=== PATIENT | male | born 1960 | race Caucasian/White ===

== ENCOUNTER 2018-01-17 15:43 | Observation (INO) | payer OTHER ==
--- NOTE | 2018-01-17 16:09 | RAD ---
TWO VIEWS OF THE CHEST: Comparison: None. History: Chest tightness. FINDINGS: Two views of the chest show normal sized cardiomediastinal silhouette. There is no evidence of consol idation, mass, or pleural effusion. The bones are unremarkable. IMPRESSION: No evidence of acute cardiopulmonary disease. POS: [facility]
[2018-01-17 16:29] LABS: #Basophils 0.1 thou/uL (0.0-0.2); #Eosinphils 0.2 thou/uL (0.0-0.7); #Lymphocytes 2.4 thou/uL (1.20-3.40); #Neutrophils 4.9 thou/uL (1.40-6.50); %Basophils 0.9 % (0.0-1.0); %Eosinophils 2.3 % (0.0-10.0); %Lymphocytes 27.7 % (21.0-51.0); %Monocytes 12.1 % (0.0-10.0); Hemoglobin 17.6 g/dL (14.0-18.0); Mean Corpuscular HGB CONC 35.7 g/dL (32.0-36.0); Mean Corpuscular Hemoglobin 31.9 pg (27.0-31.0); Mean Corpuscular Volume 89.6 fL (78.0-98.0); Mean Platelet Volume 6.1 fL (7.4-10.4); Platelet Count 254 thou/uL (130-400); RBC Distribution Width 12.7 % (11.5-14.5); White Blood Cell (WBC) Count 8.7 thou/uL (4.8-10.8)
[2018-01-17 16:53] LABS: ALT (SGPT) 51 U/L (8-55); AST (SGOT) 29 U/L (5-34); Albumin 4.2 g/dL (3.5-5.0); Alkaline Phosphatase 78 U/L (40-150); Anion Gap 12 mmol/L (10-20); BUN (Urea Nitrogen) 19 mg/dL (8.4-25.7); CK (CPK) 138 U/L (30-200); Calc. Creatinine Clearance 0 mL/min (70-130); Calcium 9.4 mg/dL (7.8-10.44); Carbon Dioxide 23 mmol/L (22-29); Chloride 110 mmol/L (98-107); Estimated GFR-MDRD 41; Globulin 3.2 g/dL (2.4-3.5); Glucose 104 mg/dL (70-105); Lipase 25 U/L (8-78); Potassium 4.1 mmol/L (3.5-5.1); Protein, Total 7.4 g/dL (6.0-8.3); Sodium 141 mmol/L (136-145)
[2018-01-17 16:54] LABS: PTT 28.7 SEC (22.9-36.1); Prothrombin Time 12.9 SEC (12.0-14.7)
[2018-01-17 16:56] LABS: CKMB 2.9 ng/mL (0-6.6); Troponin I Less than 0.010 ng/mL (< 0.028)
[2018-01-17 19:28] LABS: Troponin I Less than 0.010 ng/mL (< 0.028)
[2018-01-17 22:16] VITALS: BMI 38.5
[2018-01-17 22:58] LABS: Troponin I Less than 0.010 ng/mL (< 0.028)
[2018-01-18 07:55] VITALS: BP 164/98; TEMP 97.8
[2018-01-18] MEDS ORDERED: Metoprolol Tartrate 25 MG TAB PO SCH (11:00)
--- NOTE | 2018-01-18 11:07 | SS ---
DATE OF ADMISSION: 01/17/2018 DATE OF DISCHARGE: 01/18/2018 PRIMARY CARE PHYSICIAN: Dr. Vladislav Justice. ADMISSION DIAGNOSES: Hypertensive urgency and chest discomfort. DISCHARGE DIAGNOSES: Hypertension, hemochromatosis with liver cirrhosis, noncompliance. CONSULTATIONS: None. PROCEDURES: Rule out TN protocol, telemetry monitoring. PAST MEDICAL HISTORY: Hypertension and hereditary hemochromatosis with cirrhosis. MEDICATIONS: Metoprolol 25 mg daily, but noncompliant. PAST SURGICAL HISTORY: Appendectomy, cardiac catheterization in 2014. A stress test and echocardiog елена in 05/2017. SOCIAL HISTORY: No smoking and no alcohol. 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 FAMILY HISTORY: Positive for heart disease. REVIEW OF SYSTEMS: As per the history of present illness. He denies any recent fevers, chills, or r ecent illness. HEENT: No headache, visual or hearing changes. Cardiac: Some chest discomfort yest erday when his blood pressure was high. Denies chest pain, palpitations, shortness of breath. Pulmo nary: Denies cough or hemoptysis. Gastrointestinal: Positive history of hemochromatosis. He was l ast seen by GI in [place] in 08/2017. He was not compliant with followup recommendations. He has not continued with scheduled phlebotomy. Genitourinary: Denies dysuria or hematuria. Neurologic: No weakness, seizures, or syncope. PHYSICAL EXAMINATION: VITAL SIGNS: Temperature 97.8, pulse of 84, respirations 20, blood pressure 148/93, pulse ox is 97% on room air. GENERAL: He is awake and alert, in no acute distress, resting comfortably in bed, morbidly obese. NECK: Supple. HEART: Regular rate and rhythm without murmurs. LUNGS: Clear bilaterally. ABDOMEN: Obese, soft, nontender, nondistended. No hepatosplenomegaly. EXTREMITIES: Trace edema bilaterally in lower extremities. NEUROLOGIC: Cranial nerves II-XII are grossly intact. LABORATORY DATA: Cardiac enzymes negative x3. Sodium 141, potassium 4.1, chloride 110, CO2 of 23, B UN and creatinine 19 and 1.74 with a GFR of 41. Serum glucose of 104. AST and ALT are normal. Tota l bilirubin 1.0. BNP normal at 27, albumin of 4.2. PT and PTT are normal. White blood cell count 8 ,700, hemoglobin and hematocrit 17 and 49, platelets of 254. Chest x-ray showed no active disease. EKG reveals normal sinus rhythm. No acute ST-T changes. ASSESSMENT AND PLAN: This is a 57-year-old gentleman with a history of hypertension, hemochromatosis , and noncompliance, now admitted with, 1. Uncontrolled hypertension. Restarting his metoprolol, but increasing to 50 mg. 2. He had a chest discomfort. He had had a normal cardiac catheterization in 2014 and negative stre ss test in 05/2017. Echocardiogram was done already with his Cardiology in [place]. We will obtain [facility] followup records. 3. Hypertension. Again, we will increase the metoprolol to 50 mg. 4. Hemochromatosis. Encouraged to follow up with Gastroenterology to continue his scheduled phlebot memo. DISPOSITION: We will discharge home with close followup with Dr. Justice to encourage compliance.
[2018-01-19] MEDS ORDERED: Metoprolol Tartrate 25 MG TAB PO SCH (09:00)
== END 2018-01-18 11:20 | disposition home or self-care (01) ==
LOC: ERS 15:43 → 2SW 18:00
PROVIDERS: ADMIT Internal Medicine; ATTEND Internal Medicine
DX: I10 Essential (primary) hypertension (principal); E83.119 Hemochromatosis, unspecified; K74.60 Unspecified cirrhosis of liver; Z91.19 Patient's noncompliance with other medical treatment and regimen; Z79.899 Other long term (current) drug therapy
CPT/HCPCS: 36415; 71046; 80053; 82553; 83690; 83880; 84484; 85025; 85610; 85730; 93005; G0378